=== PATIENT | female | born 1995 | race American Indian/Alaskan Native ===

== ENCOUNTER 2016-02-18 18:17 | Emergency (ER) | payer MEDICAID ==
[2016-02-18 18:46] VITALS: BP 112/58
[2016-02-18 19:47] LABS: Basophils % (Auto) 0.4 % (0.0-1.8); Eosinophils % (Auto) 0.2 % (0.0-4.3); Hematocrit 38.5 % (30.3-42.9); Hemoglobin 13.1 gm/dl (10.1-14.3); Mean Corpuscular HGB Conc 34 % (30-34); Mean Corpuscular Hemoglobin 31 pg (28-32); Mean Corpuscular Volume 90 fl (79-97); Platelet Count 260 K/mm3 (140-440); Red Blood Count 4.27 M/mm3 (3.65-5.03); Red Cell Distribution Width 12.9 % (13.2-15.2); White Blood Count 11.2 K/mm3 (4.5-11.0)
--- NOTE | 2016-02-18 20:26 | Emergency Department Report ---
Chief Complaint: Vaginal Bleeding Stated Complaint: X10 WKS/BLEEDING - HPI History of Present Illness: 10-week patient c/o vaginal bleed, abd cramps, lack of appetite, diarrhea, vomiting, slight fever x today. LMP 12/12/15 - Exam Vital Signs: Vital Signs 02/18/16 18:42 Temperature 99.2 F Pulse Rate 96 H Respiratory 12 Rate Blood Pressure 112/58 O2 Sat by Pulse 100 Oximetry Physical Exam: General: NAD. MSE screening note: Focused history and physical exam performed. Due to findings the following was ordered: ED Disposition for MSE Condition: Stable
[2016-02-18 21:40] LABS: Bilirubin,Urine NEG (Negative); Blood,Urine LG (Negative); Ketones,Urine NEG (Negative); Leukocyte Esterase,Urine NEG (Negative); Mucus,Urine 2+ /HPF; Nitrite,Urine NEG (Negative); Urobilinogen,Urine < 2.0 mg/dL (<2.0)
[2016-02-18 21:43] LABS: RBC,Urine > 182.0 /HPF (0.0-6.0)
== END 2016-02-18 20:40 | disposition left against medical advice (07) ==
LOC: ED 18:17
DX: O20.9 Hemorrhage in early pregnancy, unspecified (principal); O26.891 Other specified pregnancy related conditions, first trimester; R19.7 Diarrhea, unspecified; R63.0 Anorexia; O21.9 Vomiting of pregnancy, unspecified; Z3A.10 10 weeks gestation of pregnancy; Z53.21 Procedure and treatment not carried out due to patient leaving prior to being seen by health care provider
CPT/HCPCS: 36415; 81001; 81025; 84702; 85025; 86850; 86900; 86901